=== PATIENT | male | born 1980 | race Caucasian/White ===

== ENCOUNTER 2018-10-26 12:46 | Emergency (ER) | payer BC ==
--- NOTE | 2018-10-26 13:39 | UC ---
General HPI - HPI Summary HPI Summary: Here with and two kids ( being seen as well in urgent care) States he had a high fever 5 days ago with cough and congestion. Was feeling better and went back to work yesterday but yesterday he had a temp of 100.5. He was initially lightheaded and dizzy that has since resolved. No vomiting or diarrhea. +Sick contacts. Meds; Reviewed, did get a flu shot - History of Current Complaint Chief Complaint: UCGeneralIllness Stated Complaint: CONGESTION COUGH Pain Intensity: 0 - Allergy/Home Medications Allergies/Adverse Reactions: Allergies Allergy/AdvReac Type Severity Reaction Status Date / Time No Known Allergies Allergy Verified 10/26/18 13:20 Home Medications: Home Medications Lisdexamfetamine Dimesylate [Vyvanse] 20 mg PO DAILY WITH MEAL 10/26/18 [ History Confirmed 10/26/18] PMH/Surg Hx/FS Hx/Imm Hx Previously Healthy: Yes - Surgical History Surgical History: Yes Surgery Procedure, Year, and Place: [facility] - Social History Alcohol Use: Occasionally Substance Use Type: None Smoking Status (MU): Never Smoked Tobacco Review of Systems All Other Systems Reviewed And Are Negative: Yes Constitutional: Positive: Fever ENT: Positive: Sinus Congestion Respiratory: Positive: Cough Physical Exam Triage Information Reviewed: Yes Appearance: Well-Appearing Vital Signs: Initial Vital Signs Temp 98.2 F 10/26/18 13:16 Pulse 85 10/26/18 13:16 Resp 18 10/26/18 13:16 BP 146/71 10/26/18 13:16 Pulse Ox 100 10/26/18 13:16 Eye Exam: Normal ENT: Positive: Pharyngeal erythema, Nasal drainage, Other - clear fluid behind right TM Neck: Positive: Supple, Nontender Respiratory: Positive: Lungs clear, Normal breath sounds Cardiovascular: Positive: RRR, No Murmur Course/Dx - Course Course Of Treatment: This is a previously healthy male with cough and congestion. Assessment. Nontoxic appearing. Flu: Positive. Tamiflu not indicated - symptoms started > 48 hrs ago. Plan. Continue supportive care. Continue to drink plenty of fluids. Over the count decongestant and cough suppressant. If symptoms persist or worsen, call primary for further evaluation - Diagnoses Provider Diagnosis: Influenza A Discharge - Sign-Out/Discharge Documenting (check all that apply): Patient Departure All imaging exams completed and their final reports reviewed: No Studies - Discharge Plan Condition: Fair Disposition: HOME Referrals: Cira Hodge MD [Primary Care Provider] - Additional Instructions: Continue supportive care Continue to drink plenty of fluids Over the count decongestant and cough suppressant If symptoms persist or worsen, call primary for further evaluation Can return to work when you are fever free for 24 hours - Billing Disposition and Condition Condition: FAIR Disposition: Home
[2018-10-26 13:58] LABS: Influenza A Molecular POSITIVE (Negative)
== END 2018-10-26 14:15 | disposition home or self-care (01) ==
LOC: UCEAST 12:46
DX: J10.1 Influenza due to other identified influenza virus with other respiratory manifestations (principal)
CPT/HCPCS: 99201; G0463